=== PATIENT | male | born 1945 | race African-American/Black ===

== ENCOUNTER 2021-06-20 11:51 | Emergency (ER) | payer MEDICARE ==
[~2021-06-20] VITALS: Ht 170.2 cm; Wt 82.0 kg
[2021-06-20 17:42] LABS: BASOPHILS % 0.5 % (0.0-2.0); EOSINOPHILS % 0.8 % (0.0-5.0); HEMATOCRIT. 40.1 % (42.0-52.0); HEMOGLOBIN. 13.6 g/dL (14.0-18.0); LYMPHOCYTES % 22.8 % (20.0-50.0); MEAN CORPUSCULAR HEMOGLOBIN 30.9 pg (28.0-32.0); MEAN CORPUSCULAR VOLUME 91.4 fL (80.0-94.0); MEAN PLATELET VOLUME 8.7 fl (7.4-10.4); MONOCYTES % 8.6 % (2.0-8.0); NEUTROPHILS % 67.3 % (40.0-76.0); PLATELET 228 x1000/uL (130-400); RED BLOOD CELL COUNT 4.38 mill/uL (4.7-6.1); RED CELL DISTRIBUTION WIDTH 13.6 % (11.6-14.6)
[2021-06-20 17:44] LABS: CHLORIDE 107 mEq/L (98-107)
[2021-06-20 17:51] LABS: CLARITY URINE CLEAR (CLEAR); COLOR URINE YELLOW (YELLOW); KETONES URINE NEGATIVE (NEGATIVE); LEUKOCYTE ESTERASE URINE NEGATIVE (NEGATIVE); NITRITE URINE NEGATIVE (NEGATIVE); OCCULT BLOOD URINE TRACE (NEGATIVE); PH URINE 6.5 (4.5-8.0); PROTEIN URINE NEGATIVE (NEGATIVE); SPECIFIC GRAVITY URINE 1.009 (1.005-1.030); UROBILINOGEN URINE 0.2 E.U./dL (0.2-1.0)
[2021-06-20] MEDS ORDERED: IOHEXOL-350 100 ML BOTTLE ONE (18:53)
[2021-06-20] MEDS ORDERED: LISINOPRIL 10MG TABLET PO SCH (23:00)
[2021-06-21 11:14] VITALS: BP 141/73
== END 2021-06-21 11:19 | disposition home or self-care (01) ==
LOC: ER 11:51 → CANBEDREQ 06-21 11:34
DX: H53.8 Other visual disturbances (principal); R51.9 Headache, unspecified; I10 Essential (primary) hypertension; E78.00 Pure hypercholesterolemia, unspecified; Z20.822 Contact with and (suspected) exposure to COVID-19; Z98.890 Other specified postprocedural states
CPT/HCPCS: 36415; 70450; 70496; 70498; 80053; 81003; 84484; 85025; 87426; 99285; Q9967